=== PATIENT | female | born 1970 | race Caucasian/White ===

== ENCOUNTER 2024-01-24 07:07 | Day surgery (SDC) | payer OTHER ==
[~2024-01-24] VITALS: Ht 160 cm; Wt 70.8 kg
[2024-01-24] MEDS ORDERED: fentaNYL citrate 0.05 MG/ML VIAL ONE (08:21)
[2024-01-24] MEDS: fentaNYL citrate 0.05 MG/ML VIAL IVP ONE (09:21)
[2024-01-24] MEDS ORDERED: LIDOCAINE 2% 100 MG/5 ML UJET TP ONE (10:05)
== END 2024-01-24 11:05 | disposition home or self-care (01) ==
LOC: MDS 07:07 → MMU 07:12 → MDS 11:05
PROVIDERS: ATTEND Internal Medicine Gastroenterology
DX: K59.00 Constipation, unspecified (principal); E78.5 Hyperlipidemia, unspecified; M19.90 Unspecified osteoarthritis, unspecified site; Z80.0 Family history of malignant neoplasm of digestive organs; Z79.899 Other long term (current) drug therapy; Z98.890 Other specified postprocedural states
CPT/HCPCS: 45378; J3010